=== PATIENT | male | born 1975 | race Caucasian/White ===

== ENCOUNTER 2017-05-19 00:28 | Inpatient (IN) | payer OTHER ==
[~2017-05-19] VITALS: Ht 177.8 cm; Wt 77.1 kg
--- NOTE | ~2017-05-19 | PA ---
Unit #: [id number] #: [id number] Patient: STEVE DEAN [id number] [facility] [address] [place] [address] [id number] MR#: [id number] NAME: STEVE DEAN ROOM: P186 Age: 41 Sex: M Admission Date: 05/20/2017 : 1975 Date of Assessment: 05/20/2017 Attending Physician: Chaz Hatfield M.D. Admitting Physician: Chaz Hatfield M.D. Primary Care Physician: Generic Doctor Not In System PSYCHIATRIC ASSESSMENT DATE OF SERVICE 05/20/2017. INFORMANTS The patient's reliability, fair; chart reliability, good. CHIEF COMPLAINT Substance abuse. HISTORY OF PRESENT ILLNESS Mr. Steve Dean is a 41-year-old male, who presented with the above-mentioned complaint. The patient has a history of polysubstance abuse, history of treatment in 2000 and at age 14 also. The patient reported that he needs some help and reported detoxing using multiple drugs. The patient reports that many of his friends have overdosed or gone to assisted. He knows that he will be on that path soon. The patient reports that he has been using as much as ice "I can daily" and reported using marijuana 3 g of heroin laced with other staff. The patient used cocaine 4 days ago using Xanax, Klonopin. Reported history of sobriety, lasted for about 58 months. The patient reports multiple drug abuse multiple times in a day. Recently, started using cocaine. Tested positive for amphetamine, benzo, cocaine, opiate, oxycodone, and THC upon admission to the emergency room. Reported nausea, vomiting, hallucination, chills, tremor during detox. The patient has a limited support structure [facility], poor support system. History of charges, such as burglary and robbery in the past, DUI 3 weeks ago. Currently denied any suicidal or homicidal ideation. Needing inpatient admission at this time for psychiatric stabilization. PAST PSYCHIATRIC HISTORY Remarkable for history of previous treatment as mentioned above in 2000 for substance abuse. FAMILY HISTORY AND SOCIAL HISTORY The patient has a poor support system, unemployed, legal charges. No history of abuse. MEDICAL HISTORY Remarkable for history of hypertension. Musculoskeletal; muscle strength and tone, no atrophy or abnormal movement. Gait normal. MEDICATION HISTORY None. Unit #: [id number] #: [id number] Patient: STEVE DEAN ALLERGIES No known drug allergies. SUBSTANCE ABUSE HISTORY Reported tobacco use, age of onset 10; marijuana, age of onset 11; opioid, age of onset 10; amphetamine, age of onset 41. Longest period of sobriety, 58 months and last period of sobriety, 05/05/2016. The patient reported history of blackout, hepatitis, withdrawal symptoms, history of IV drug abuse. Currently, reporting diarrhea, restlessness, and abdominal cramping. REVIEW OF SYSTEMS HEENT: Eyes, clear. Ears, nose, mouth, and throat; clear. CARDIOVASCULAR: Unremarkable. RESPIRATORY: Unremarkable. GI: Unremarkable. : Unremarkable. SKIN: Unremarkable. LYMPH NODE: Unremarkable. NEUROLOGIC: Unremarkable. ENDOCRINE: Unremarkable. HEMATOLOGIC: Unremarkable. ALLERGIC/IMMUNOLOGIC: Unremarkable. MUSCULOSKELETAL: Muscle strength and tone, no atrophy or abnormal movement. Gait normal. MENTAL STATUS EXAMINATION CONSTITUTIONAL: Measurement of vital signs; temperature 96.2, heart rate 65, respiratory rate 18, blood pressure 140/95, height 5 feet 10 inches, weight 170 pounds. GENERAL APPEARANCE: The patient dressed casually. The patient did not show any facial deformity. MUSCULOSKELETAL: Please see above. PSYCHIATRIC EXAMINATION Description of speech; slow in volume and rate. Description of thought process, circumstantial. Description of association; the patient guarded and paranoid, but denied any thoughts of harming self or others. Multiple substance abuse. Description of the patient's judgment, concerning everyday activity, poor. Social situation, poor. Concerning psychiatric condition, poor. Complete mental status examination; oriented in time, place, and person. Recent and remote memory, fair. Attention span and concentration, fair. Language, able to name object and repeat phrases. Fund of knowledge, aware of current event and passive vocabulary intact. Mood and affect, sad and dysphoric. Insight and judgment, fair to poor. ASSETS AND LIABILITIES Assets, the patient is articulate and able to take care of his ADL. Liability, history of housing problem, unemployment, substance abuse, depression. ADMITTING DIAGNOSES Psychiatric: Opioid use disorder, severe, F11.20; cocaine use disorder, severe, F14.20; polysubstance abuse; mood disorder, not otherwise specified, F32.9. Unit #: [id number] #: [id number] Patient: STEVE DEAN Secondary diagnosis: Deferred. Medical diagnosis: Hypertension. Stressors: Psychosocial stressor. PSYCHIATRIC PLAN 1. Advised to admit the patient on the inpatient unit. Provide safe, supportive, and structured environment. 2. Ordered labs; CBC, CMP, UA, and UDS. 3. Detox protocol and detox monitoring. If needed, consider medication for mood symptoms. The patient to attend all the programming, group therapy, individual therapy, chemical dependency group. TREATMENT GOAL To attain euthymic mood, gain insight into his problem, and learn coping skills. DISCHARGE PLAN Plan to stabilize the patient and consider followup in outpatient program. ESTIMATED LENGTH OF STAY 5 days. Dictated by... Sangeeta Ridley/amadou TD: 05/21/2017 02:03 JOB #: [id number] PSYCHIATRIC ASSESSMENT Page 1 of 1 X Chaz Hatfield MD X PSYCHIATRIC ASSESSMENT
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
--- NOTE | ~2017-05-19 | DS ---
Unit #: [id number] #: [id number] Patient: NYASIA DEAN [id number] [facility] [address] [place] [address] [id number] MR#: [id number] NAME: NYASIA DEAN ROOM: P186 Age: 41 Sex: M Admission Date: 05/20/2017 : 1975 Discharge Date: 05/23/2017 Attending Physician: Chaz Hatfield M.D. Primary Care Physician: Generic Doctor Not In System DISCHARGE SUMMARY REASON FOR ADMISSION Substance abuse. DIAGNOSTIC STUDIES LABORATORY RESULTS: Unremarkable. HOSPITAL COURSE The patient was admitted on 05/20/2017 and discharged on 05/23/2017. The patient was treated on the inpatient unit with chemical dependency group, expressive therapy, psychoeducation, and psychotherapy. The patient was responsive to treatment. Subsequently, the patient was discharged with a plan to follow up in outpatient program. DISCHARGE MEDICATIONS None. DISCHARGE DIAGNOSES Psychiatric: Opioid use disorder, severe, F11.20; cocaine use disorder, severe, F14.20; polysubstance abuse and mood disorder, not otherwise specified, F32.9. Secondary diagnosis: Deferred. Medical diagnosis: Hypertension. Stressors: Psychosocial stressors. DISCHARGE INSTRUCTIONS The patient to follow up in outpatient clinic as per psychosocial rehabilitation counselor. CONDITION ON DISCHARGE The patient was pleasant and cooperative. Denied any psychotic symptom or any suicidal ideation. PROGNOSIS Guarded. DIET AND ACTIVITY As tolerated. Dictated by... Chaz Hatfield M.D. Unit #: [id number] #: [id number] Patient: NYASIA DEAN SZC/modl TD: 05/23/2017 17:08 JOB #: [id number] DISCHARGE SUMMARY Page 1 of 1 X Chaz Hatfield MD X DISCHARGE SUMMARY
--- NOTE | ~2017-05-19 | PN ---
Unit #: [id number] #: [id number] Patient: NYASIA DEAN [id number] [facility] [address] [place] [address] [id number] MR#: [id number] NAME: NYASIA DEAN ROOM: P186 Age: 41 Sex: M Admission Date: 05/20/2017 : 1975 Attending Physician: Chaz Hatfield M.D. Admitting Physician: Chaz Hatfield M.D. Primary Care Physician: Generic Doctor Not In System [facility] PROGRESS NOTES DATE 05/21/2017 DISCUSSION Mr. Wilson is a 41-year-old male seen on 05/21/2017. The patient interviewed, chart reviewed. Obtained information from nursing staff. The patient continues to be isolative, guarded, flat affect. The patient currently on detox protocol. Vital signs 98.4, 89, 154/96. The patient denied any thoughts of harming self or others. Complete review of systems unremarkable. MENTAL STATUS EXAMINATION General appearance, the patient dressed casually. Attention span and concentration fair. Oriented to place and person. Mood and affect labile. Speech monotone. Thought process concrete. The patient denied any thoughts of harming self or others. Recent and remote memory poor. Insight and judgement poor. DIAGNOSES 1. Opiate use disorder severe 2. Polysubstance abuse ASSESSMENT/PLAN Advise to continue with current medication and therapeutic protocol. If needed consider further adjustment of medication. Dictated by... Sangeeta Ridley/kade TD: 05/22/2017 23:49 JOB #: [id number] Unit #: [id number] #: [id number] Patient: NYASIA DEAN [facility] PROGRESS NOTES Page 1 of 1 X Chaz Hatfield MD X PROGRESS NOTE
--- NOTE | ~2017-05-19 | PN ---
Unit #: [id number] #: [id number] Patient: NYASIA DEAN [id number] [facility] [address] [place] [address] [id number] MR#: [id number] NAME: NYASIA DEAN ROOM: P186 Age: 41 Sex: M Admission Date: 05/20/2017 : 1975 Attending Physician: Chaz Hatfield M.D. Admitting Physician: Chaz Hatfield M.D. Primary Care Physician: Generic Doctor Not In System [facility] PROGRESS NOTES DATE 05/22/2017 DISCUSSION Mr. Wilson is a 41-year-old male. The patient interviewed, chart reviewed, and obtained information from the nursing staff. The patient was compliant and cooperative, reported that he is having withdrawal symptoms, anxious, nervous, depressed, withdrawn, isolative, but denied any thoughts of harming self or others. REVIEW OF SYSTEMS Complete review of systems unremarkable. MENTAL STATUS EXAMINATION General appearance: Patient dressed casually. Attention span and concentration, fair. Oriented in place and person. Mood and affect, labile. Speech, monotone. Thought process, concrete. The patient denied any thoughts of harming self or others. Recent and remote memory, poor. Insight and judgment, poor. DIAGNOSES 1. Opiate use disorder, severe. 2. Cocaine use disorder, severe. 3. Polysubstance abuse. ASSESSMENT/PLAN Advised to continue with the current medication and therapeutic protocol, with a plan to consider discharge tomorrow. Dictated by... Sangeeta Ridley/stacey TD: 05/23/2017 08:57 JOB #: [id number] Unit #: [id number] #: [id number] Patient: NYASIA DEAN [facility] PROGRESS NOTES Page 1 of 1 X Chaz Hatfield MD PROGRESS NOTE
== END 2017-05-23 17:45 | disposition home or self-care (01) | DRG 897 ==
LOC: P1E 05-20 02:54
PROC: HZ2ZZZZ Detoxification Services for Substance Abuse Treatment (ICD-10-PCS; principal; 2017-05-20)
DX: F11.20 Opioid dependence, uncomplicated (principal); F14.20 Cocaine dependence, uncomplicated; I10 Essential (primary) hypertension; F39 Unspecified mood [affective] disorder; F90.9 Attention-deficit hyperactivity disorder, unspecified type; Z86.19 Personal history of other infectious and parasitic diseases; Z59.0 Homelessness; F17.210 Nicotine dependence, cigarettes, uncomplicated
CPT/HCPCS: 86592